=== PATIENT | female | born 1970 | race African-American/Black ===

== ENCOUNTER 2018-02-26 01:26 | Emergency (ER) | payer OTHER ==
[~2018-02-26] VITALS: Ht 165.1 cm; Wt 106.8 kg
[2018-02-26] MEDS ORDERED: ULTRAM50 M1 PO (02:30)
[2018-02-26] MEDS ORDERED: FLEXERIL PO (02:30)
[2018-02-26 02:34] VITALS: BP 158/94
== END 2018-02-26 02:45 | disposition home or self-care (01) | DRG 552 ==
LOC: ED 01:26
DX: S13.9XXA Sprain of joints and ligaments of unspecified parts of neck, initial encounter (principal); X58.XXXA Exposure to other specified factors, initial encounter